=== PATIENT | male | born 1980 | race Caucasian/White ===

== ENCOUNTER 2016-11-11 12:12 | Emergency (ER) | payer OTHER ==
[2016-11-11 12:36] VITALS: BP 144/99; PULSE 82; TEMP 98.5; BMI 34.9
--- NOTE | 2016-11-11 12:38 | PDOC ---
History of Present Illness - General Chief Complaint: Injury Stated Complaint: LEFT 2ND FINGER CRUSH Time Seen by Provider: 11/11/16 12:21 History Source: Patient (Patient walked in complaining of pain left index finger after a folding table fell on his finger) Exam Limitations: No Limitations - History of Present Illness Occurred: reports: just prior to arrival Severity: reports: mild, moderate Pain Location: reports: upper extremity Method of Injury: Yes: direct blow Modifying Factors: improves with: cold therapy Loss of Consciousness: no loss of consciousness Associated Symptoms (Fall): denies symptoms Past History - Past Medical History Allergies/Adverse Reactions: Allergies Allergy/AdvReac Type Severity Reaction Status Date / Time No Known Allergies Allergy Verified 11/11/16 12:13 Home Medications: Ambulatory Orders NK [No Known Home Medication] 11/11/16 Procedures - Nail Trephination Nail Trephination Location: Nail trephination with cautery , after sterile preparation, Sterile Dressing Applied: Yes Finger Splint: Yes Medical Decision Making - Medical Decision Making X ray finger ordered , denies any need for pain medication, Patient is UTD Tetanus booster 11/11/16 12:36 *DC/Admit/Observation/Transfer Diagnosis at time of Disposition: Crushed finger, distal Qualifiers: Encounter type: initial encounter Qualified Code(s): S67.10XA - Crushing injury of unspecified finger(s), initial encounter Subungual hematoma of finger of left hand Qualifiers: Encounter type: initial encounter Qualified Code(s): S60.10XA - Contusion of unspecified finger with damage to nail, initial encounter Distal phalanx or phalanges, closed fracture Qualifiers: Encounter type: initial encounter Finger: index finger Fracture alignment: nondisplaced Laterality: left Qualified Code(s): S62.661A - Nondisplaced fracture of distal phalanx of left index finger, initial encounter for closed fracture - Discharge Dispostion Disposition: HOME Condition at time of disposition: Improved Admit: No - Referrals Referrals: Fransisco Walker MD [Staff Physician] - - Patient Instructions Printed Discharge Instructions: DI for Finger Fracture - Post Discharge Activity Work/School Note: Back to Work
[2016-11-11] MEDS ORDERED: IBUPROFEN 600 MG TABLET (FP) PO ONE ×2 (14:07→14:37)
== END 2016-11-11 14:42 | disposition home or self-care (01) ==
LOC: FER 12:12
PROC: 2W3KX1Z Immobilization of Left Finger using Splint (ICD-10-PCS; principal; 2016-11-11)
DX: S67.191A Crushing injury of left index finger, initial encounter (principal); S60.022A Contusion of left index finger without damage to nail, initial encounter; W20.8XXA Other cause of strike by thrown, projected or falling object, initial encounter; Y93.89 Activity, other specified; Y92.9 Unspecified place or not applicable
CPT/HCPCS: 73140-TC-LT; 99281-25